=== PATIENT | female | born 1990 | race Caucasian/White ===

== ENCOUNTER 2016-05-18 19:55 | Inpatient (IN) | payer OTHER ==
[~2016-05-18] VITALS: Ht 160 cm; Wt 68.9 kg
[~2016-05-18 19:55] MED LIST: PREN1TAB89 PO
[2016-05-18 20:53] VITALS: BP 129/83
[2016-05-18] MEDS ORDERED: EUTIROX PO ×2 (20:57)
[2016-05-18] MEDS ORDERED: RINGERS SOLUTION,LACTATED 1,000 ML IV ONE (23:41)
[2016-05-18] MEDS ORDERED: RINGERS SOLUTION,LACTATED 1,000 ML IV SCH (23:51)
[2016-05-18] MEDS ORDERED: RINGERS SOLUTION,LACTATED 1,000 ML IV PRN (23:51)
[2016-05-18] MEDS ORDERED: OXYTOCIN 30 UNITS/LACT RINGERS 500 ML IV ONE (23:51)
[2016-05-19] MEDS ORDERED: CITRIC ACID/SODIUM CITRATE 30 ML SOLUTION UDCUP PO PRN
[2016-05-19] MEDS ORDERED: AMPICILLIN SODIUM 2 GM/NS 100 ML IV ONE
[2016-05-19] MEDS ORDERED: METOCLOPRAMIDE HCL 5 MG/ML 2 ML VIAL IVP PRN
[2016-05-19] MEDS ORDERED: LIDOCAINE HCL/PF 1% 30 ML VIAL INJ PRN
[2016-05-19] MEDS: FentaNYL CITRATE-PF 100 MCG/2 ML VIAL IVP PRN ×2 (00:31→00:47)
[2016-05-19 00:58] LABS: BASOPHILS # (AUTO) 0.04 K/uL (0.00-0.20); BASOPHILS % (AUTO) 0.3 % (0.0-2.0); EOSINOPHILS % (AUTO) 2.67 % (1.0-6.0); HEMATOCRIT 34.3 % (36-46); HEMOGLOBIN 11.7 g/dL (12.0-16.0); LYMPHOCYTES # (AUTO) 2.5 K/uL (1.0-4.8); LYMPHOCYTES % (AUTO) 22.2 % (22.0-44.0); MEAN CORPUSCULAR HEMOGLOBIN 30.4 pg (26.0-34.0); MEAN CORPUSCULAR HGB CONC 34.1 G/dL (31.0-37.0); MEAN CORPUSCULAR VOLUME 89 fL (80-100); MONOCYTES # (AUTO) 0.7 K/uL (0.1-1.0); MONOCYTES % (AUTO) 6.4 % (2.0-9.0); NEUTROPHILS # (AUTO) 7.6 K/uL (1.8-7.7); NEUTROPHILS % (AUTO) 68.4 % (40.0-70.0); RED BLOOD CELL COUNT(AUTO) 3.85 MIL/uL (4.00-5.20); RED CELL DISTRIBUTION WIDTH 13.2 % (11.5-14.5); WHITE BLOOD COUNT (AUTO) 11.1 K/uL (4.5-11.0)
[2016-05-19] MEDS ORDERED: FentaNYL/BUPIV 0.125%/NS/PF 200 ML ED ONE (01:19)
[2016-05-19] MEDS ORDERED: BUPIVACAINE HCL/PF 0.25% 30 ML VIAL ONE (01:21)
[2016-05-19] MEDS ORDERED: FentaNYL/BUPIV 0.125%/NS/PF 200 ML ED PRN (02:05)
[2016-05-19] MEDS ORDERED: ONDANSETRON HCL 4 MG/2 ML VIAL IVP PRN (02:15)
[2016-05-19] MEDS ORDERED: DiphenhydrAMINE HCL 50 MG/ML VIAL IVP PRN (02:15)
[2016-05-19] MEDS: AMPICILLIN SODIUM 1 GM/NS 50 ML IV SCH ×3 (03:57→12:22)
[2016-05-19] MEDS ORDERED: OXYTOCIN 30 UNITS/LACT RINGERS 500 ML IV PRN (06:56)
[2016-05-19] MEDS ORDERED: OXYGEN THERAPY IH SCH (08:00)
[2016-05-19] MEDS ORDERED: LANOLIN 7 GM OINTMENT TP PRN (14:30)
[2016-05-19] MEDS ORDERED: ACETAMINOPHEN/CODEINE 300-30 MG TABLET PO PRN ×2 (14:30)
[2016-05-19] MEDS ORDERED: BENZOCAINE 20%/MENTHOL 56 GM SPRAY CANISTER TP PRN (14:30)
[2016-05-19] MEDS ORDERED: GLYCERIN/WITCH HAZEL LEAF 40 PADS JAR TP PRN (14:30)
[2016-05-19] MEDS: MAGNESIUM HYDROXIDE SUSPENSION 30 ML UDCUP PO SCH (21:04)
[2016-05-19] MEDS: IBUPROFEN 600 MG TABLET PO PRN (21:05)
[2016-05-19] MEDS: SENNA/DOCUSATE SODIUM 187-50 MG TABLET PO SCH (21:05)
[2016-05-20] MEDS: IBUPROFEN 600 MG TABLET PO PRN (05:31)
[2016-05-20] MEDS: MAGNESIUM HYDROXIDE SUSPENSION 30 ML UDCUP PO SCH (08:51)
[2016-05-20] MEDS: SENNA/DOCUSATE SODIUM 187-50 MG TABLET PO SCH (08:51)
[2016-05-20] MEDS ORDERED: IBUP-2070 PO (12:57)
[2016-05-20] MEDS ORDERED: DSS100 PO (12:58)
== END 2016-05-20 15:00 | disposition home or self-care (01) | DRG 775 ==
LOC: 4S 19:55 → OBSVTOIN 19:55 → 4S 05-19 20:21
PROVIDERS: ADMIT Obstetrics & Gynecology; ATTEND Obstetrics & Gynecology
PROC: 10E0XZZ Delivery of Products of Conception, External Approach (ICD-10-PCS; principal; 2016-05-19)
PROC: 0KQM0ZZ Repair Perineum Muscle, Open Approach (ICD-10-PCS; 2016-05-19)
PROC: 0W8NXZZ Division of Female Perineum, External Approach (ICD-10-PCS; 2016-05-19)
DX: O99.824 Streptococcus B carrier state complicating childbirth (principal); O99.284 Endocrine, nutritional and metabolic diseases complicating childbirth; E03.9 Hypothyroidism, unspecified; O70.1 Second degree perineal laceration during delivery; Z37.0 Single live birth; Z3A.38 38 weeks gestation of pregnancy
CPT/HCPCS: 86850; 86900; 86901; J0290; J2590; J3010; J3490; J7120

== ENCOUNTER 2018-12-09 18:02 | Inpatient (IN) | payer OTHER ==
[~2018-12-09] VITALS: Ht 160 cm; Wt 70.3 kg
[~2018-12-09 18:02] MED LIST changes: +DSS100 PO; +EUTIROX PO; +IBUP-2070 PO
[2018-12-10] MEDS ORDERED: RINGERS SOLUTION,LACTATED 1,000 ML IV PRN (06:03)
[2018-12-10] MEDS ORDERED: RINGERS SOLUTION,LACTATED 1,000 ML IV SCH (06:03)
[2018-12-10] MEDS ORDERED: FentaNYL CITRATE-PF 100 MCG/2 ML VIAL IVP PRN (06:15)
[2018-12-10] MEDS ORDERED: CITRIC ACID/SODIUM CITRATE 30 ML SOLUTION UDCUP PO PRN (06:15)
[2018-12-10] MEDS ORDERED: METOCLOPRAMIDE HCL 5 MG/ML 2 ML VIAL IVP PRN (06:15)
[2018-12-10] MEDS ORDERED: LIDOCAINE/PF 1% 30 ML VIAL INJ PRN (06:15)
[2018-12-10 06:39] LABS: BASOPHILS % (AUTO) 0.3 % (0.0-2.0); HEMATOCRIT 33.7 % (36-46); HEMOGLOBIN 10.9 g/dL (12.0-16.0); LYMPHOCYTES # (AUTO) 3.2 K/uL (1.0-4.8); LYMPHOCYTES % (AUTO) 26.7 % (22.0-44.0); MEAN CORPUSCULAR HEMOGLOBIN 28.8 pg (26.0-34.0); MEAN CORPUSCULAR HGB CONC 32.3 G/dL (31.0-37.0); MEAN CORPUSCULAR VOLUME 89 fL (80-100); MONOCYTES # (AUTO) 0.8 K/uL (0.1-1.0); MONOCYTES % (AUTO) 6.8 % (2.0-9.0); NEUTROPHILS # (AUTO) 7.8 K/uL (1.8-7.7); NEUTROPHILS % (AUTO) 65.2 % (40.0-70.0); PLATELET COUNT (AUTO)-OB 229 K/uL (150-450); RED BLOOD CELL COUNT(AUTO) 3.78 MIL/uL (4.00-5.20); RED CELL DISTRIBUTION WIDTH 13.6 % (11.5-14.5)
[2018-12-10] MEDS ORDERED: MISOPROSTOL 25 MCG TABLET VG ONE (07:15)
[2018-12-10 07:30] VITALS: BP 113/69
[2018-12-10] MEDS ORDERED: AMPICILLIN SODIUM 2 GM/NS 100 ML IV ONE (09:00)
[2018-12-10] MEDS ORDERED: OXYTOCIN 30 UNITS/LACT RINGERS 500 ML IV PRN (11:25)
[2018-12-10] MEDS ORDERED: AMPICILLIN SODIUM 1 GM/NS 50 ML IV SCH (13:00)
[2018-12-10] MEDS ORDERED: ROPIVACAINE HCL/PF 0.2% 100 ML ED ONE (13:24)
[2018-12-10] MEDS ORDERED: LIDOCAINE/PF 2% 5 ML VIAL ONE (13:24)
[2018-12-10] MEDS ORDERED: ONDANSETRON HCL 4 MG/2 ML VIAL IVP PRN (14:00)
[2018-12-10] MEDS ORDERED: NALBUPHINE HCL 10 MG/ML VIAL IVP PRN (14:00)
[2018-12-10] MEDS ORDERED: ROPIVACAINE HCL/PF 0.2% 100 ML ED PRN (14:00)
[2018-12-10] MEDS ORDERED: DiphenhydrAMINE HCL 50 MG/ML VIAL IVP PRN (14:00)
[2018-12-10] MEDS ORDERED: GLYCERIN/WITCH HAZEL LEAF 40 PADS JAR TP PRN (15:45)
[2018-12-10] MEDS ORDERED: ACETAMINOPHEN/CODEINE 300-30 MG TABLET PO PRN ×2 (15:45)
[2018-12-10] MEDS ORDERED: BENZOCAINE 20%/MENTHOL 56 GM SPRAY CANISTER TP PRN (15:45)
[2018-12-10] MEDS ORDERED: LANOLIN 7 GM OINTMENT TP PRN (15:45)
[2018-12-10] MEDS: IBUPROFEN 800 MG TABLET PO SCH ×2 (16:35→23:17)
[2018-12-10] MEDS: MAGNESIUM HYDROXIDE SUSPENSION 30 ML UDCUP PO SCH (21:51)
[2018-12-11] MEDS: IBUPROFEN 800 MG TABLET PO SCH ×2 (05:13→10:14)
[2018-12-11] MEDS: MAGNESIUM HYDROXIDE SUSPENSION 30 ML UDCUP PO SCH (10:14)
== END 2018-12-11 16:40 | disposition home or self-care (01) | DRG 807 ==
LOC: 4S 18:02 → OBSVTOIN 18:02
PROVIDERS: ADMIT Obstetrics & Gynecology; ATTEND Obstetrics & Gynecology
PROC: 10907ZC Drainage of Amniotic Fluid, Therapeutic from Products of Conception, Via Natural or Artificial Opening (ICD-10-PCS; principal; 2018-12-10)
PROC: 10D07Z6 Extraction of Products of Conception, Vacuum, Via Natural or Artificial Opening (ICD-10-PCS; 2018-12-10)
PROC: 0HQ9XZZ Repair Perineum Skin, External Approach (ICD-10-PCS; 2018-12-10)
PROC: 3E0R3BZ Introduction of Anesthetic Agent into Spinal Canal, Percutaneous Approach (ICD-10-PCS; 2018-12-10)
PROC: 00HU33Z Insertion of Infusion Device into Spinal Canal, Percutaneous Approach (ICD-10-PCS; 2018-12-10)
DX: O76 Abnormality in fetal heart rate and rhythm complicating labor and delivery (principal); Z37.0 Single live birth; O99.824 Streptococcus B carrier state complicating childbirth; O70.0 First degree perineal laceration during delivery; Z3A.40 40 weeks gestation of pregnancy
CPT/HCPCS: 86850; 86900; 86901; J0290; J2590; J2795; J3490; J7120